=== PATIENT | female | born 1970 | race Two or more races ===

== ENCOUNTER 2020-01-07 09:29 | Inpatient (IN) | payer MEDICAID ==
[~2020-01-07] VITALS: Ht 162.6 cm; Wt 117.5 kg
[2020-01-07 10:58] LABS: Basophils # (auto) 0.1 10 ^3/uL (0-0.2); Basophils % (auto) 1.1 % (0.0-2.0); Eosinophils # (auto) 0.1 10 ^3/uL (0-0.8); Eosinophils % (auto) 1.4 % (0.0-7.0); Hematocrit 42.6 % (36.0-46.0); Hemoglobin 14.3 g/dL (12.2-16.2); Lymphocytes # (auto) 1.6 10 ^3/uL (0.4-5.4); Lymphocytes % (auto) 21.3 % (10.0-50.0); Mean Corpuscular Hemoglobin 29.2 pg (28.0-32.0); Mean Corpuscular Hgb Conc. 33.7 g/dL (32.0-36.0); Mean Corpuscular Volume 86.6 fL (80.0-100.0); Monocytes # (auto) 0.5 10 ^3/uL (0-1.3); Monocytes % (auto) 6.3 % (0.0-12.0); Neutrophils # (auto) 5.3 10 ^3/uL (1.6-8.6); Neutrophils % (auto) 69.9 % (37.0-80.0); Nucleated Red Blood Cells % 0.1 %; Platelet Count (auto) 305 10^3/uL (140-450); Red Blood Cells 4.92 10^6/uL (4.0-5.20); Red Cell Distribution Width 14.7 % (11.8-14.3); White Blood Cell 7.5 10^3/uL (4.4-10.8)
[2020-01-07 11:18] LABS: Albumin 4.2 g/dL (3.4-5.0); Anion Gap 6 (5-15); Blood Urea Nitrogen 25 mg/dL (7-18); Calcium 9.4 mg/dL (8.5-10.1); Carbon Dioxide 21 mmol/L (21-32); Chloride 111 mmol/L (98-107); Glucose 98 mg/dL (74-106); Sodium 138 mmol/L (136-145)
[2020-01-07 11:24] LABS: Alanine Aminotransferase 17 U/L (13-56); Alkaline Phosphatase 133 U/L (45-117); Aspartate Aminotransferase 35 U/L (15-37); BUN/Creatinine Ratio 28.4; Bilirubin, Total 0.6 mg/dL (0.2-1.0); GFR African American 87 mL/min; GFR Non-African American 72 mL/min; Total Protein 7.9 g/dL (6.4-8.2)
[2020-01-07 11:30] LABS: INR 1.02 (0.9-1.15)
[2020-01-07 14:34] LABS: Urine Bacteria NONE SEEN /hpf (None Seen); Urine Blood Negative /uL (Negative); Urine Specific Gravity 1.019 (1.001-1.035); Urine WBC 17 /hpf (0 - 5)
[2020-01-07] MEDS ORDERED: cefTRIAXone 1GM/50ML D5W 50 ML IV ONE (14:45)
[2020-01-07 15:08] LABS: Amphetamine Screen, Urine NEGATIVE (NEGATIVE); Barbiturate Scree,Urine NEGATIVE (NEGATIVE); Benzodiazephine Screen, Urine NEGATIVE (NEGATIVE); Cannabinoid Screen, Urine NEGATIVE (NEGATIVE); Cocaine Screen, Urine NEGATIVE (NEGATIVE); Opiate Scree,Urine NEGATIVE (NEGATIVE); Phencyclidine Screen, Urine NEGATIVE (NEGATIVE)
[2020-01-07] MEDS ORDERED: MORPHINE SULF INJ 2 MG/ML SYRINGE 1ML IV PRN (18:30)
[2020-01-07] MEDS ORDERED: ALBUTEROL SULF 2.5 MG/0.5ML(0.5%) NEB SOLN NEB PRN (18:30)
[2020-01-07] MEDS ORDERED: ONDANSETRON HCL 4 MG/2 ML VIAL IV PRN (18:30)
[2020-01-07] MEDS ORDERED: NITROGLYCERIN 0.4 MG SL TAB SL PRN (18:30)
[2020-01-07] MEDS ORDERED: HYDROcodone-ACET 5/325MG TAB PO PRN (18:30)
[2020-01-07] MEDS ORDERED: IPRATROPIUM BROM 0.5 MG/2.5ML INH SOL NEB PRN (18:30)
[2020-01-07] MEDS ORDERED: ACETAMINOPHEN 325 MG TAB PO PRN (18:30)
[2020-01-07] MEDS ORDERED: FUR20T PO (18:35)
[2020-01-07] MEDS ORDERED: POTA10TA75 PO (18:35)
[2020-01-07] MEDS ORDERED: ALBU108A5 INH (18:35)
[2020-01-07] MEDS ORDERED: LISI-646 PO (18:35)
[2020-01-07] MEDS ORDERED: ATOR40TA52 PO (18:35)
[2020-01-07] MEDS ORDERED: METO25TA93 PO (18:35)
[2020-01-07] MEDS ORDERED: MET25T PO (18:35)
[2020-01-07 19:14] VITALS: BP 116/76
--- NOTE | 2020-01-07 20:55 | NUR ---
Telemetry admit from [facility] admitted to Telemetry unit after SBAR received. Patient oriented to NA FUENTES, RN primary RN, unit, room, bed, and unit policies regarding patient care and visiting hours. Patient now on continuous telemetry monitoring, tele box # 81 and telemetry reading on arrival to unit is 84SR. Patient placed on bedside oxygen, weighed by bedscale and encouraged to call if they need something. All questions and concerns addressed, patient verbalized understanding.
[2020-01-07 22:15] VITALS: BP 101/69
--- NOTE | 2020-01-07 22:50 | NUR ---
patient verbalized understanding to remain npo for procedure
--- NOTE | 2020-01-07 22:55 | NUR ---
consents patient signed blood consent. refused to sign procedure consent and anesthesia consent per patient " my doctor alexis told me about the procedure but i want copies of this paper signed with his signature." educated patient that copy will be provided. patient refused to sign at this moment.
[2020-01-08] MEDS ORDERED: ACET-6 PO (01:14)
[2020-01-08] MEDS ORDERED: ACET650T12 PO (01:14)
[2020-01-08] MEDS ORDERED: CARB10TA7 PO (01:14)
[2020-01-08] MEDS ORDERED: CHOL20007 PO (01:14)
--- NOTE | 2020-01-08 04:17 | NUR ---
Patient linen/ gown changed. patient wiped down with chg wipes.
[2020-01-08 05:00] VITALS: BP 105/71
--- NOTE | 2020-01-08 05:00 | NUR ---
patient verbalized itching to her grown. redness noted. cool packs provided
--- NOTE | 2020-01-08 05:18 | NUR ---
consents patient signed consents and verbalized understanding as per patient MD espinoza spoke with her of the procedure
--- NOTE | 2020-01-08 05:20 | NUR ---
patient reported relief to groin after application of ice pack.
[2020-01-08 06:54] LABS: Basophils # (auto) 0 10 ^3/uL (0-0.2); Basophils % (auto) 0.9 % (0.0-2.0); Eosinophils # (auto) 0.2 10 ^3/uL (0-0.8); Eosinophils % (auto) 2.9 % (0.0-7.0); Hematocrit 40.3 % (36.0-46.0); Hemoglobin 13.3 g/dL (12.2-16.2); Lymphocytes % (auto) 34.5 % (10.0-50.0); Mean Corpuscular Hemoglobin 28.9 pg (28.0-32.0); Mean Corpuscular Hgb Conc. 33.1 g/dL (32.0-36.0); Mean Corpuscular Volume 87.5 fL (80.0-100.0); Monocytes # (auto) 0.5 10 ^3/uL (0-1.3); Monocytes % (auto) 8.4 % (0.0-12.0); Neutrophils # (auto) 3.1 10 ^3/uL (1.6-8.6); Neutrophils % (auto) 53.3 % (37.0-80.0); Platelet Count (auto) 277 10^3/uL (140-450); Red Cell Distribution Width 14.4 % (11.8-14.3); White Blood Cell 5.8 10^3/uL (4.4-10.8)
--- NOTE | 2020-01-08 07:05 | NUR ---
PATIENT TAKEN DOWN TO WHARF HAND BY WHARF HAND TEAM FOR PROCEDURE. DENIES SOB DISTRESS OR PAIN
[2020-01-08 07:06] LABS: Calcium 9.5 mg/dL (8.5-10.1); Potassium 3.7 mmol/L (3.5-5.1)
--- NOTE | 2020-01-08 07:10 | NUR ---
REPORT GIVEN TO WENDY MCCARTHY
[2020-01-08] MEDS ORDERED: LIDOCAINE 2%HCL (LOCAL ANESTH.) INJ 20ML MDV ONE (07:14)
[2020-01-08] MEDS ORDERED: HEPARIN SODIUM (PORCINE) 5000 UNITS/ML 1ML VIAL ONE (07:19)
[2020-01-08] MEDS ORDERED: VERAPAMIL 2.5MG/ML INJ 2ML VIAL IV ONE (07:19)
[2020-01-08] MEDS ORDERED: ANGIOMAX 250 MG VIAL IV ONE (07:19)
[2020-01-08] MEDS ORDERED: NITROGLYCERIN 5MG/ML 10ML VIAL IV ONE (07:20)
[2020-01-08] MEDS ORDERED: MIDAZOLAM HCL 1MG/1ML-2 ML VIAL ONE (07:20)
[2020-01-08] MEDS ORDERED: SODIUM CHL 0.9% 50 ML ONE (07:20)
[2020-01-08] MEDS ORDERED: fentaNYL CITRATE 100 MCG/2 ML VL ONE (07:20)
--- NOTE | 2020-01-08 08:55 | NUR ---
Pt. received in [facility] awake and is oriented to person, place and event. Respirations even and unlabored. RIGHT groin soft with no hematoma or bleeding noted, dressing is CDI. Moves all extremities spontaneously but keeps RIGHT leg straight, as instructed. IV to RIGHT hand intact; site benign. Pt. instructed re: procedure outcome and plan of care; verbalized understanding and is compliant. Currently denies discomfort, NAD noted.
--- NOTE | 2020-01-08 09:05 | NUR ---
Pt. c/o lower back ache, repositioned with pillows for comfort. Instructed re: importance of keeping RIGHT leg straight for 2 hours.
--- NOTE | 2020-01-08 09:15 | NUR ---
Repositioned on bed for comfort per pt. request. RIGHT groin soft with dressing CDI. HOB elevated only 10 degrees. RIGHT pedal pulses palpable at DP and PT.
--- NOTE | 2020-01-08 09:32 | NUR ---
Dr. Rivera at bedside instructing pt. re: procedure outcome and plan of care; pt. verbalized understanding and is compliant.
[2020-01-08] MEDS ORDERED: SODIUM CHL 0.9% 1,000 ML IV ONE (09:45)
--- NOTE | 2020-01-08 09:46 | NUR ---
SBAR report given to FABIO Salgado. Pt. voided QS in bedpan.
--- NOTE | 2020-01-08 09:55 | NUR ---
RIGHT groin unchanged, transferred back to room in stable condition. IV credit 900 ml; RIGHT hand site benign. Pt. endorsed to FABIO Salgado.
[2020-01-08] MEDS ORDERED: METOPROLOL SUCCINATE XL 50 MG TAB PO SCH (10:00)
[2020-01-08] MEDS ORDERED: FUROSEMIDE 20 MG TAB PO SCH (10:00)
[2020-01-08] MEDS ORDERED: ATORVASTATIN 20 MG TAB PO SCH (10:00)
[2020-01-08 13:00] VITALS: BP 138/92
[2020-01-08] MEDS ORDERED: SODIUM CHLOR 0.9% PF (SALINE LOCK) 10ML VIAL/SYR IV SCH ×2 (14:00→21:30)
--- NOTE | 2020-01-08 14:45 | NUR ---
PATIENT GROIN SITE STILL WNL.
--- NOTE | 2020-01-08 14:45 | NUR ---
PER DR JUSTEN FREY TO DC PATIENT AND PATIENT CAN FOLLOW UP WITH [facility] TO SET UP CT ANGIO.
[2020-01-08] MEDS ORDERED: METO-6 PO (15:01)
--- NOTE | 2020-01-08 15:20 | NUR ---
ss consult Per ss consult arrange transportation home. [facility] transport has been faxed the transport form for ETA of 5pm [phone] Addendum: 01/08/20 at 1521 by Sulema MACIAS Amended: Links added.
--- NOTE | 2020-01-08 16:00 | NUR ---
ASSESSMENT: SS consult for drug use The patient is a 49-year-old female, who is alert and oriented. Patient cognitive abilities are intact. Prior to admission patient live with her Phillip and her 14-year-old son. Patient denies any history of illicit drug use. Patient stated she has plans on returning home post discharge. Patient uses a walker and wheelchair for ambulatory assistance, patient uses a shower chair and has home oxygen. Patient stated that she need transportation assistance post discharge. Patient [facility] that [facility]. Patient stated that her Phillip and daughter Raven is her support system. Discharge Planning: [facility] will provide Taxi transportation. Patient will resume services with [facility] post discharge Addendum: 01/08/20 at 1600 by ANTONY RALPH Amended: Links added.
--- NOTE | 2020-01-08 16:24 | NUR ---
ss consult Per consult requesting information on advanced directive. Patient has been provided with advanced directive. Addendum: 01/08/20 at 1624 by Sulema Goodman Amended: Links added.
[2020-01-08 16:36] VITALS: BP 139/93
[2020-01-08 16:38] VITALS: BP 107/69
--- NOTE | 2020-01-08 17:05 | NUR ---
PATIENT STATES SHE SEES DR DOMINGUEZ FREQUENTLY AND WILL NEED TO MAKE AN APPOINTMENT HERSELF SHE WILL NEED TO ARRANGE TRANSPORT WITH INSURANCE. 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 PATIENT VERBALIZED UNDERSTANDING OF ALL TEACHING. PATIENT IV DCD WITH CATHETER INTACT, PATIENT TELE MONITOR RETURNED TO [facility].
[2020-01-08] MEDS ORDERED: SILDENAFIL CITRATE 20 MG TAB PO SCH (20:00)
== END 2020-01-08 17:05 | disposition home or self-care (01) | DRG 192 ==
LOC: ER 09:29 → TELE-WESTW 09:30
PROVIDERS: ADMIT Internal Medicine; ATTEND Internal Medicine
PROC: 4A023N8 Measurement of Cardiac Sampling and Pressure, Bilateral, Percutaneous Approach (ICD-10-PCS; principal; 2020-01-08)
PROC: B2111ZZ Fluoroscopy of Multiple Coronary Arteries using Low Osmolar Contrast (ICD-10-PCS; 2020-01-08)
PROC: B2151ZZ Fluoroscopy of Left Heart using Low Osmolar Contrast (ICD-10-PCS; 2020-01-08)
DX: I27.20 Pulmonary hypertension, unspecified (principal); E66.01 Morbid (severe) obesity due to excess calories; E78.5 Hyperlipidemia, unspecified; F12.90 Cannabis use, unspecified, uncomplicated; Z68.41 Body mass index [BMI] 40.0-44.9, adult; J44.9 Chronic obstructive pulmonary disease, unspecified; J96.11 Chronic respiratory failure with hypoxia; N39.0 Urinary tract infection, site not specified; Z82.49 Family history of ischemic heart disease and other diseases of the circulatory system; Z87.891 Personal history of nicotine dependence; I11.0 Hypertensive heart disease with heart failure; F15.90 Other stimulant use, unspecified, uncomplicated; I50.43 Acute on chronic combined systolic (congestive) and diastolic (congestive) heart failure
CPT/HCPCS: 36415; 71045; 80048; 80053; 80307; 81001; 83880; 84484; 85025; 85610; 85730; 86850; 86900; 86901; 87086; 93005; 93306; 93460; 93970; 99152; 99153; C1751; G0378; J0696; J2250; J3490